=== PATIENT | male | born 1945 | race Caucasian/White ===

== ENCOUNTER 2020-02-16 18:42 | Inpatient (IN) | payer MEDICARE, OTHER ==
[~2020-02-16] VITALS: Ht 185.4 cm; Wt 85.2 kg
--- NOTE | 2020-02-16 19:00 | NUR ---
PT BIB EMS, TRANSFER FROM [facility]. PT WITH INCREASED FALLS X3 DAYS, ALSO STATES GOUT FLAIR UP. CT WAS PERFORMED AT SENDING FACILITY, ACUTE LACUNAR INFACT FOUND, PT ALSO IN IN A FIB. PT WITH PAST MEDICAL HX OF STROKE WELL A FIB, HOWEVER PT'S RATE IS FASTER THEN NORMAL. PT DOES TAKE COUMADIN. EKG COMPELETD AT BEDSIDE AND PT PLACED ON MONTIORS. REPORT GIVEN TO ADRIEN PADRON.
[2020-02-16] MEDS ORDERED: DILTIAZEM 125 MG in SODIUM CHLORIDE 0.9% 100 ML IV SCH ×2 (19:22→22:00)
[2020-02-16 19:42] LABS: BASOPHILS # (AUTO) 0.02 x10^3/uL (0-0.1); BASOPHILS % (AUTO) 0 % (0-1); EOSINOPHILS # (AUTO) 0.05 x10^3/uL (0-0.4); EOSINOPHILS % (AUTO) 1 % (1-7); LYMPHOCYTES % (AUTO) 12 % (22-44); MD NO; MEAN CORPUSCULAR HEMOGLOBIN 33.6 pg (27.5-34.5); MEAN CORPUSCULAR HGB CONC 32.9 g/dL (33.2-36.2); MEAN CORPUSCULAR VOLUME 102.2 fL (81-97); MEAN PLATELET VOLUME 8.4 fL (7.4-10.4); MONOCYTES # (AUTO) 0.95 x10^3/uL (0.2-0.8); MONOCYTES % (AUTO) 10 % (2-9); NEUTROPHILS # (AUTO) 7.55 x10^3/uL (1.8-6.8); NEUTROPHILS % (AUTO) 77 % (42-75); PLATELET COUNT 330 x10^3/uL (130-400); RED BLOOD COUNT 4.17 x10^6/uL (4.38-5.82); RED CELL DISTRIBUTION WIDTH 13.6 % (9.4-14.8)
[2020-02-16 19:49] LABS: ALBUMIN 2.3 g/dL (3.4-5.0); ANION GAP 9 mmol/L (5-15); CALCIUM 8.9 mg/dL (8.5-10.1); CHLORIDE 106 mmol/L (98-107); CREATININE 1.14 mg/dL (0.7-1.3)
[2020-02-16 19:51] LABS: INTERNATIONAL NORMALIZED RATIO 1.84 (0.93-1.1); PROTHROMBIN TIME 19.6 Seconds (9.6-11.5)
[2020-02-16 19:53] LABS: TROPONIN I < 0.015 ng/mL (0.000-0.045)
--- NOTE | 2020-02-16 20:10 | NUR ---
Vivek hospitalist , in room.
[2020-02-16] MEDS ORDERED: hydrALAzine 20 MG/ML, 1ML IVPush PRN (20:30)
[2020-02-16] MEDS ORDERED: PROMETHAZINE 25 MG/ML, 1ML IM PRN (20:30)
[2020-02-16] MEDS ORDERED: morphine SULFATE 10 MG/ML, 1ML IVPush PRN (20:30)
[2020-02-16] MEDS ORDERED: POLYETHYLENE GLYCOL 17 GM PACKET PO PRN (20:30)
[2020-02-16] MEDS ORDERED: ONDANSETRON ODT 4 MG PO PRN (20:30)
[2020-02-16] MEDS ORDERED: ONDANSETRON 2MG/ML, 2ML IVPush PRN (20:30)
[2020-02-16] MEDS ORDERED: BISACODYL 10 MG SUPP PR PRN (20:30)
[2020-02-16] MEDS ORDERED: DOCUSATE 100 MG CAPSULE PO PRN (20:30)
[2020-02-16] MEDS ORDERED: POTASSIUM CHLORIDE 40 MEQ in SODIUM CHLORIDE 0.9% 500 ML IV ONE (20:30)
[2020-02-16] MEDS ORDERED: LABETALOL 5MG/ML, 20ML IVPush PRN (20:30)
[2020-02-16] MEDS ORDERED: CYAN-27 PO (20:40)
[2020-02-16] MEDS ORDERED: LISI40TA PO (20:40)
[2020-02-16] MEDS ORDERED: AMLO-150 PO (20:40)
[2020-02-16] MEDS ORDERED: WARF2TAB99 PO (20:40)
[2020-02-16] MEDS ORDERED: HYDR12.517 PO (20:40)
[2020-02-16] MEDS ORDERED: CHOL10003 PO (20:40)
[2020-02-16] MEDS ORDERED: ATOR10TA9 PO (20:40)
[2020-02-16] MEDS ORDERED: METO50TA82 PO (20:40)
[2020-02-16] MEDS ORDERED: LISI-170 PO (20:40)
[2020-02-16 21:24] LABS: FREE T4 (FREE THYROXINE) 1.41 ng/dL (0.76-1.46)
[2020-02-16 22:33] VITALS: BP 118/72
[2020-02-16] MEDS: COLCHICINE 0.6 MG CAPSULE PO SCH (22:35)
[2020-02-16] MEDS: ATORVASTATIN 40 MG TABLET PO SCH (22:35)
[2020-02-16] MEDS: METOPROLOL TARTRATE 50 MG TAB PO SCH (22:36)
[2020-02-16 23:50] LABS: MICROSCOPIC INDICATED
[2020-02-17 00:19] VITALS: BP 100/63
[2020-02-17] MEDS: CEFTRIAXONE PMX 2GM/50ML 50 ML IV SCH (00:52)
[2020-02-17 06:02] LABS: BASOPHILS # (AUTO) 0.04 x10^3/uL (0-0.1); BASOPHILS % (AUTO) 0 % (0-1); EOSINOPHILS # (AUTO) 0.04 x10^3/uL (0-0.4); EOSINOPHILS % (AUTO) 0 % (1-7); LYMPHOCYTES # (AUTO) 1.04 x10^3/uL (1-3.4); LYMPHOCYTES % (AUTO) 12 % (22-44); MD NO; MEAN CORPUSCULAR HEMOGLOBIN 34.4 pg (27.5-34.5); MEAN CORPUSCULAR HGB CONC 33.3 g/dL (33.2-36.2); MEAN CORPUSCULAR VOLUME 103.2 fL (81-97); MONOCYTES # (AUTO) 0.98 x10^3/uL (0.2-0.8); MONOCYTES % (AUTO) 11 % (2-9); NEUTROPHILS # (AUTO) 6.98 x10^3/uL (1.8-6.8); NEUTROPHILS % (AUTO) 77 % (42-75); PLATELET COUNT 329 x10^3/uL (130-400); RED BLOOD COUNT 4.28 x10^6/uL (4.38-5.82); RED CELL DISTRIBUTION WIDTH 13.7 % (9.4-14.8)
[2020-02-17 06:07] LABS: CHLORIDE 108 mmol/L (98-107)
[2020-02-17 06:13] LABS: ALANINE AMINOTRANSFERASE 16 U/L (12-78); ALBUMIN 2.1 g/dL (3.4-5.0); ALKALINE PHOSPHATASE 82 U/L (45-117); ANION GAP 8 mmol/L (5-15); CHOL/HDL RATIO 3.5; CHOLESTEROL, TOTAL 107 mg/dL (140-239); CREATININE 1.06 mg/dL (0.7-1.3); HDL CHOL % 29 % (26-37); HDL CHOLESTEROL (DIRECT) 31 mg/dL (40-60); LDL CHOLESTEROL,CALCULATED 55 mg/dL (54-169); LDL/HDL RATIO 1.8 (0.5-3.0); TOTAL PROTEIN 6.4 g/dL (6.4-8.2); TRIGLYCERIDES 107 mg/dL (50-200); VLDL CHOLESTEROL 21 mg/dL (0-25)
[2020-02-17 06:36] VITALS: BP 114/79
[2020-02-17 06:54] VITALS: BP 100/69
[2020-02-17] MEDS: COLCHICINE 0.6 MG CAPSULE PO SCH (08:07)
[2020-02-17] MEDS: LISINOPRIL 20 MG TABLET PO SCH (08:08)
[2020-02-17] MEDS: METOPROLOL TARTRATE 50 MG TAB PO SCH ×2 (08:08→17:28)
[2020-02-17] MEDS: CHOLECALCIFEROL 1,000 UNIT TABLET PO SCH (08:09)
[2020-02-17] MEDS: CYANOCOBALAMIN 1,000 MCG TABLET PO SCH (08:09)
[2020-02-17] MEDS: AMLODIPINE 5 MG TABLET PO SCH (08:09)
[2020-02-17 12:23] VITALS: BP 115/75
[2020-02-17] MEDS ORDERED: SULF1TAB23 PO (12:24)
[2020-02-17 19:17] VITALS: BP 107/67
[2020-02-17] MEDS: ATORVASTATIN 40 MG TABLET PO SCH (21:58)
[2020-02-17] MEDS: ACETAMINOPHEN 325 MG TABLET PO PRN (21:59)
[2020-02-18 00:43] VITALS: BP 104/66
[2020-02-18] MEDS: CEFTRIAXONE PMX 2GM/50ML 50 ML IV SCH (00:45)
[2020-02-18 06:23] VITALS: BP 118/73
[2020-02-18] MEDS: METOPROLOL TARTRATE 50 MG TAB PO SCH ×2 (06:24→17:34)
[2020-02-18] MEDS: ACETAMINOPHEN 325 MG TABLET PO PRN (06:27)
[2020-02-18] MEDS: LISINOPRIL 20 MG TABLET PO SCH (08:53)
[2020-02-18] MEDS: HYDROCHLOROTHIAZIDE 12.5 MG CAPSULE PO SCH (08:53)
[2020-02-18] MEDS: CYANOCOBALAMIN 1,000 MCG TABLET PO SCH (08:53)
[2020-02-18] MEDS: AMLODIPINE 5 MG TABLET PO SCH (08:54)
[2020-02-18] MEDS: CHOLECALCIFEROL 1,000 UNIT TABLET PO SCH (08:54)
[2020-02-18] MEDS: COLCHICINE 0.6 MG CAPSULE PO SCH (08:54)
[2020-02-18 14:29] VITALS: BP_SYST 111; BP_SYST 149; BP_DIAS 77; BP_DIAS 92
[2020-02-18 18:59] VITALS: BP 128/80
[2020-02-18 19:50] LABS: INTERNATIONAL NORMALIZED RATIO 1.41 (0.93-1.1)
[2020-02-18] MEDS: ATORVASTATIN 40 MG TABLET PO SCH (19:51)
[2020-02-18] MEDS ORDERED: ALBUTEROL SULFATE 2.5 MG/3 ML ONE (20:44)
[2020-02-18] MEDS ORDERED: WARFARIN 3 MG TABLET PO-COUM ONE (21:00)
[2020-02-18] MEDS ORDERED: ALBUTEROL SULFATE 2.5 MG/3 ML NPPB PRN (21:00)
[2020-02-19] MEDS: CEFTRIAXONE PMX 2GM/50ML 50 ML IV SCH (00:43)
[2020-02-19 01:40] VITALS: BP 127/80
[2020-02-19] MEDS: METOPROLOL TARTRATE 50 MG TAB PO SCH ×2 (05:20→17:47)
[2020-02-19 05:45] LABS: INTERNATIONAL NORMALIZED RATIO 1.38 (0.93-1.1); PROTHROMBIN TIME 14.7 Seconds (9.6-11.5)
[2020-02-19 06:38] VITALS: BP 113/78
[2020-02-19] MEDS: LISINOPRIL 20 MG TABLET PO SCH (08:38)
[2020-02-19] MEDS: CYANOCOBALAMIN 1,000 MCG TABLET PO SCH (08:38)
[2020-02-19] MEDS: CHOLECALCIFEROL 1,000 UNIT TABLET PO SCH (08:39)
[2020-02-19] MEDS: AMLODIPINE 5 MG TABLET PO SCH (08:39)
[2020-02-19] MEDS: COLCHICINE 0.6 MG CAPSULE PO SCH (08:39)
[2020-02-19 13:09] VITALS: BP 117/77
[2020-02-19] MEDS ORDERED: WARFARIN 2 MG TABLET PO-COUM ONE (18:00)
[2020-02-19 18:59] VITALS: BP 125/83
[2020-02-19] MEDS: CEFDINIR 300 MG CAPSULE PO SCH (20:24)
[2020-02-19] MEDS: ATORVASTATIN 40 MG TABLET PO SCH (20:25)
[2020-02-20 00:56] VITALS: BP 118/76
[2020-02-20] MEDS: METOPROLOL TARTRATE 50 MG TAB PO SCH (05:09)
[2020-02-20 06:20] LABS: INTERNATIONAL NORMALIZED RATIO 1.51 (0.93-1.1); PROTHROMBIN TIME 16.1 Seconds (9.6-11.5)
[2020-02-20 06:55] VITALS: BP 129/86
[2020-02-20] MEDS: HYDROCHLOROTHIAZIDE 12.5 MG CAPSULE PO SCH (08:30)
[2020-02-20] MEDS: CYANOCOBALAMIN 1,000 MCG TABLET PO SCH (08:30)
[2020-02-20] MEDS: CHOLECALCIFEROL 1,000 UNIT TABLET PO SCH (08:31)
[2020-02-20] MEDS: LISINOPRIL 20 MG TABLET PO SCH (08:31)
[2020-02-20] MEDS: AMLODIPINE 5 MG TABLET PO SCH (08:31)
[2020-02-20] MEDS: COLCHICINE 0.6 MG CAPSULE PO SCH (08:31)
[2020-02-20] MEDS: CEFDINIR 300 MG CAPSULE PO SCH (08:31)
[2020-02-20] MEDS ORDERED: MAGNESIUM SULFATE PMX 4GM/100M 100 ML IV ONE (09:30)
[2020-02-20] MEDS ORDERED: ERGOCALCIFEROL 50,000 UNIT CAPSULE PO SCH (09:30)
[2020-02-20 12:23] VITALS: BP 95/63
[2020-02-20] MEDS ORDERED: MAGN400T26 PO (12:26)
[2020-02-20] MEDS ORDERED: WARFARIN 2 MG TABLET PO-COUM ONE (18:00)
== END 2020-02-20 15:43 | disposition home health service (06) | DRG 690 ==
LOC: ED 19:52 → EDIP 20:07 → 4WST 21:11
PROVIDERS: ADMIT Internal Medicine; ATTEND Internal Medicine
DX: N39.0 Urinary tract infection, site not specified (principal); D68.69 Other thrombophilia; G81.91 Hemiplegia, unspecified affecting right dominant side; M10.9 Gout, unspecified; D75.89 Other specified diseases of blood and blood-forming organs; E83.42 Hypomagnesemia; E87.6 Hypokalemia; F17.210 Nicotine dependence, cigarettes, uncomplicated; G62.9 Polyneuropathy, unspecified; I10 Essential (primary) hypertension; I48.91 Unspecified atrial fibrillation; Z79.01 Long term (current) use of anticoagulants; Z86.73 Personal history of transient ischemic attack (TIA), and cerebral infarction without residual deficits; Z71.6 Tobacco abuse counseling; Z88.2 Allergy status to sulfonamides; Z79.899 Other long term (current) drug therapy
CPT/HCPCS: 36415; 70551; 80048; 80053; 80061; 81001; 82040; 82306; 82607; 83036; 83735; 84439; 84443; 84484; 85025; 85610; 85730; 87086; 93005; 93306; 93880; 94640; 96365; 96368; G0378; J0696; J3480; J3475; J7040; U0001-CS